=== PATIENT | male | born 1950 ===

== ENCOUNTER 2022-02-08 07:11 | Day surgery (SDC) | payer OTHER ==
[~2022-02-08] VITALS: Ht 188 cm; Wt 113.4 kg
[~2022-02-08 07:11] MED LIST: ALDACTONE25 MG PO; CARDURA1 MG PO; NORVASC10 MG PO; SYNTHROID200 MCG PO; VIAGRA100 MG PO
[2022-02-08] MEDS ORDERED: ACETAMINOPHEN-1 EAC2 PO (16:20)
== END 2022-02-08 19:35 | disposition home or self-care (01) ==
LOC: CIR.AMB 07:11
PROVIDERS: ATTEND Surgery
DX: N52.9 Male erectile dysfunction, unspecified (principal); N48.6 Induration penis plastica; Z85.850 Personal history of malignant neoplasm of thyroid; E66.9 Obesity, unspecified; Z20.822 Contact with and (suspected) exposure to COVID-19
CPT/HCPCS: 54405; C1813